=== PATIENT | male | born 1940 | race Native Hawaiian/Other Pacific Islander ===

== ENCOUNTER 2019-02-15 06:13 | Day surgery (SDC) | payer MEDICARE ==
[~2019-02-15 06:13] MED LIST: BUPIVACAINE-EPINEPHRINE/PF 0.5%-1:200,000 (30 ML) VIAL INFILTRATI ONE; LACTATED RINGERS 1,000 ML IV SCH
[2019-02-15] MEDS ORDERED: BUPIVACAINE-EPINEPHRINE/PF 0.5%-1:200,000 (30 ML) VIAL INFILTRATI ONE ×3 (07:20→08:17)
--- NOTE | 2019-02-15 07:21 | Anesthesia Day of Surgery ---
Anesthesia Day of Surgery - Day of Surgery Patient Examined: Yes Patient H&P Reviewed: Yes Patient is NPO: Yes
--- NOTE | 2019-02-15 07:26 | Anesthesia Consultation ---
Anesthesia Consult and Med Hx Date of service: 02/15/19 - Airway Anesthetic Teeth Evaluation: Dentures ROM Head & Neck: Adequate Mental/Hyoid Distance: Adequate Mallampati Class: Class II Intubation Access Assessment: Probably Good - Pre-Operative Health Status ASA Pre-Surgery Classification: ASA2 Proposed Anesthetic Plan: General, MAC - Additional Comments Anesthesia Medical History Comments: +MED Clearance. Macanese speaking only. Daughter present to interpret and answer questions
[2019-02-15] MEDS ORDERED: ceFAZolin/Water 2 GM/20 ML 2 GM/20 ML SYRINGE IV NR (07:30)
[2019-02-15] MEDS ORDERED: HYDROmorphone 1 MG/1 ML INJ ONE (07:34)
[2019-02-15] MEDS ORDERED: PROPOFOL 200 MG/20 ML VIAL IV ONE (07:35)
[2019-02-15] MEDS ORDERED: MIDAZOLAM 2 MG/2 ML INJ ONE (07:35)
[2019-02-15] MEDS ORDERED: LIDOCAINE MPF (2%) 20 MG/1 ML VIAL 5 ML ONE (07:44)
--- NOTE | 2019-02-15 08:44 | Discharge Summary ---
Short Stay Discharge Plan Activity: other (d/c when stable. reg diet as sara. chin wrap to R thigh x 5 days. keep dressings dry x 5 days. rto Tuesday) Diet: regular Wound: keep clean and dry Additional Instructions: aleve I po q 6-8 hrs prn for breakthrough pain Follow up with: JESSICA RODRIGUEZ MD [Staff Physician] - 02/19/19
--- NOTE | 2019-02-15 09:23 | Operative Report ---
PREOPERATIVE DIAGNOSIS: Pigmented lesion of right groin and also subcutaneous mass of upper right thigh. PROCEDURE: Excision and removal of both lesions. SURGEON: Alexandre Edmondson MD ANESTHESIA: 0.5% Marcaine with IV sedation. COMPLICATIONS: No complications. PROCEDURE IN DETAIL: The patient was taken to the operating room, prepped and draped in usual sterile fashion. The pigmented lesion in the right groin area was removed first. A 0.5% Marcaine with epinephrine was infiltrated over the area. A 15 blade was used to excise the lesion. The skin was then closed with interrupted 4-0 Prolene. Attention was then focused to the right thigh mass. A different blade was used for this procedure. Once again, the area was infiltrated with 0.5 Marcaine with epinephrine. A 15 blade was used to incise skin and subcutaneous. Double skin hooks were used to retract the skin. Needle tip electrocautery as well as sharp and blunt dissection were used to remove the lipomatous type mass in its entirety. The area was irrigated copiously and dried. Checked for hemostasis and noted to be dry. The skin and subcutaneous were closed in a simple interrupted closure using a 4-0 Prolene. Area was then covered with 4 x 4's and Tegaderm. Ar wrap will also be placed. The patient tolerated the procedure well and left the OR in stable condition. JOB# [id number] HIRA/KATH
[2019-02-15 09:42] VITALS: BP 112/54
--- NOTE | 2019-02-15 13:11 | Post Anesthesia Evaluation ---
- Post Anesthesia Evaluation Patient Participated: Yes Airway Patent: Yes Stable Respiratory Function: Yes Nausea/Vomiting: No Temp > 96.8F: Yes Pain Manageable: Yes Adequeate Hydration: Yes Anesthesia Complications: No Block Receding Appropriately: Not Applicable Patient on Ventilator: No
== END 2019-02-15 06:14 | disposition home or self-care (01) ==
LOC: OR 06:13
PROVIDERS: ATTEND Surgery
DX: R22.41 Localized swelling, mass and lump, right lower limb (principal); D17.23 Benign lipomatous neoplasm of skin and subcutaneous tissue of right leg; L81.8 Other specified disorders of pigmentation; L83 Acanthosis nigricans; E78.00 Pure hypercholesterolemia, unspecified; I10 Essential (primary) hypertension; M19.90 Unspecified osteoarthritis, unspecified site; Z91.041 Radiographic dye allergy status; Z79.899 Other long term (current) drug therapy
CPT/HCPCS: 11401; 27337; 82962; 88307; J0690; J1170; J2250; J2704; J7120; 88304; 88305; 88341; 88342